=== PATIENT | male | born 1965 | race Two or more races ===

== ENCOUNTER 2025-09-19 00:15 | Emergency (ER) | payer OTHER ==
[~2025-09-19] VITALS: Ht 177.8 cm; Wt 90.7 kg
[2025-09-19] MEDS ORDERED: COZAAR100 MG (00:36)
[2025-09-19] MEDS ORDERED: ROSUVASTATIN CA20 MG (00:36)
[2025-09-19] MEDS ORDERED: FAMOTIDINE/PF 20 MG/2 ML VIAL IV STA (01:50)
[2025-09-19] MEDS ORDERED: METHYLPREDNISOLONE SOD SUCC 125 MG VIAL IV STA (01:50)
[2025-09-19] MEDS ORDERED: ONDANSETRON HCL 2 MG/ML VIAL IV STA (01:52)
[2025-09-19] MEDS ORDERED: 0.9 % SODIUM CHLORIDE 500 ML IV SCH (02:00)
[2025-09-19 05:33] LABS: URINE APPEARANCE Clear; URINE BILIRRUBIN Negative (NEGATIVE); URINE BLOOD Negative; URINE COLOR Yellow; URINE GLUCOSE Negative (NEGATIVE); URINE KETONE Negative (NEGATIVE); URINE LEUKOCYTE Negative; URINE NITRATE Negative; URINE PROTEIN Negative (NEGATIVE); URINE UROBILINOGEN 0.2 E.U./dl
[2025-09-19 05:36] LABS: INR 1.04
[2025-09-19 05:39] LABS: URINE BACTERIA 4.5 uL (0.0-1933); URINE EPITHELIAL CELLS 2.8 uL (0.0-38.8); URINE RBC 5.5 uL (0.0-20.8); URINE WBC 9.3 uL (0.0-23.2)
[2025-09-19 05:40] LABS: TYPE CELLS SQUAMOUS; URINE CAST 0.00 uL (0.0-1.40)
[2025-09-19 05:42] LABS: BUN CREA RATIO 17 (7.0-25.0); CREATININE SERUM 0.88 mg/dL (0.70-1.30); GFR 87.75; GLUCOSE FASTING 135 mg/dL (65-100); OSMOLALITY SERUM 284 MOSM/KG (275-295)
[2025-09-19 05:54] LABS: BASO % 0.1 % (0.1-1.2); EOS # 0.04 (0.04-0.54); EOS % 0.6 % (0.7-7.0); LYMPH # 1.65 (1.18-3.74); LYMPH % 22.7 % (19.3-53.1); MEAN PLATELET VOLUME 10.00 fl (9.4-12.4); MONO # 0.43 (0.24-0.82); MONO % 5.9 % (4.7-12.5); NEUT # 5.10 (1.56-6.13); NEUT % 70.3 % (34.0-71.1); RED CELL DISTRIBUTION WIDTH 11.9 % (11.6-14.4)
[2025-09-19 05:56] LABS: COVID-19 AG NEGATIVE (NEGATIVE)
== END 2025-09-19 09:23 | disposition home or self-care (01) ==
LOC: ER 00:15
PROVIDERS: General Practice
DX: R55 Syncope and collapse (principal); R53.81 Other malaise; Z20.822 Contact with and (suspected) exposure to COVID-19; I10 Essential (primary) hypertension